=== PATIENT | female | born 1985 | race American Indian/Alaskan Native ===

== ENCOUNTER 2018-11-06 13:19 | Emergency (ER) | payer BC ==
[2018-11-06] MEDS ORDERED: BENADRYL IV ONE (13:48)
--- NOTE | 2018-11-06 13:59 | Emergency Department Report ---
HPI - General Chief Complaint: Syncope Time Seen by Provider: 11/06/18 13:41 - HPI HPI: Room 8 The patient is a 32-year-old female presenting with a chief complaint of syncope and mouth twisting. The patient is currently at [facility] for sony ricci. Patient was given Geodon yesterday and today at approximately 09:00. The patient states approximately one hour prior to arrival she began to feel as though she is having difficulty controlling the muscles in her mouth and then had a syncopal episode. Patient denied any palpitations, shortness of breath, chest pain or headache. Patient denies pain of any type. Staff from [facility] states that the patient was on the phone when they saw her. Head down while standing. That went to the patient and she collapsed into her arms. They sent the patient chair and checked her vitals. The patient was found to be hypoxic to 75% on room air with a glucose of 106. Tactile stimuli was applied and the patient began to wake and her pulse ox improved to greater than 95%. Staff states the patient was unresponsive for approximately 4 minutes. Location: [See above] Duration: [See above] Quality: Difficulty controlling mouth Severity: Moderate Modifying factors: [see above] Context: [see above] Mode of transportation: [not driving] ED Past Medical Hx - Past Medical History Previous Medical History?: Yes Hx Psychiatric Treatment: (anxiety, depression) - Surgical History Past Surgical History?: No Additional Surgical History: D&C - Family History Family history: no significant - Social History Smoking Status: Never Smoker Substance Use Type: None ED Review of Systems ROS: Stated complaint: SYNCOPY Other details as noted in HPI Constitutional: no symptoms reported Eyes: denies: eye pain ENT: other (difficulty controlling muscles of the mouth) Respiratory: no symptoms reported Cardiovascular: denies: chest pain, palpitations Endocrine: no symptoms reported Gastrointestinal: denies: abdominal pain Genitourinary: denies: dysuria Musculoskeletal: denies: back pain Neurological: denies: headache Physical Exam - Physical Exam Vital Signs: Vital Signs 11/06/18 13:35 Temperature 98.6 F Pulse Rate 80 Respiratory 16 Rate Blood Pressure 137/89 [Left] O2 Sat by Pulse 100 Oximetry Physical Exam: GENERAL: The patient is well-developed well-nourished female sitting on stretcher not appearing to be in acute distress. Patient has pursed lips but she is able to smile symmetrically when asked. [] HEENT: Normocephalic. Atraumatic. Extraocular motions are intact. Patient has moist mucous membranes. NECK: Supple. Trachea midline CHEST/LUNGS: Clear to auscultation. There is no respiratory distress noted. HEART/CARDIOVASCULAR: Regular. There is no tachycardia. There is no gallop rub or murmur. ABDOMEN: Abdomen is soft, nontender. Patient has normal bowel sounds. There is no abdominal distention. SKIN: There is no rash. There is no edema. There is no diaphoresis. NEURO: The patient is awake, alert, and oriented. The patient is cooperative. The patient has no focal neurologic deficits. The patient has normal speech. Cranial nerves II through XII grossly intact, no drift. Symmetric smile when prompted MUSCULOSKELETAL: There is no evidence of acute injury. ED Course Vital Signs 11/06/18 13:35 Temperature 98.6 F Pulse Rate 80 Respiratory 16 Rate Blood Pressure 137/89 [Left] O2 Sat by Pulse 100 Oximetry - Reevaluation(s) Reevaluation #1: 11/06/18 15:03 Patient improved and states she feels "great." Patient asymptomatic ED Medical Decision Making - Lab Data Result diagrams: 11/06/18 13:52 11/06/18 15:52 Laboratory Tests 11/06/18 11/06/18 11/06/18 13:52 13:53 13:53 WBC 8.1 RBC 4.50 Hgb 13.8 Hct 42.1 MCV 94 MCH 31 MCHC 33 RDW 13.6 Plt Count 230 Lymph % (Auto) 21.0 Mobile % (Auto) 7.5 H Eos % (Auto) 0.2 Baso % (Auto) 1.0 Lymph # 1.7 Mobile # 0.6 Eos # 0.0 Baso # 0.1 Seg Neutrophils % 70.3 H Seg Neutrophils # 5.7 D-Dimer 230.21 Sodium TNR Potassium TNR Chloride TNR Carbon Dioxide TNR Anion Gap TNR BUN TNR Creatinine TNR Estimated GFR TNR BUN/Creatinine Ratio TNR Glucose TNR Calcium TNR Total Creatine Kinase TNR CK-MB (CK-2) TNR CK-MB (CK-2) Rel Index TNR Troponin T TNR Urine Color Urine Turbidity Urine pH Ur Specific Perley Urine Protein Urine Glucose (UA) Urine Ketones Urine Blood Urine Nitrite Urine Bilirubin Urine Urobilinogen Ur Leukocyte Esterase Urine WBC (Auto) Urine RBC (Auto) U Epithel Cells (Auto) Urine Mucus Urine HCG, Qual Urine Opiates Screen Urine Methadone Screen Ur Barbiturates Screen Ur Phencyclidine Scrn Ur Amphetamines Screen U Benzodiazepines Scrn Urine Cocaine Screen U Marijuana (THC) Screen Drugs of Abuse Note 11/06/18 11/06/18 11/06/18 15:00 15:00 15:52 WBC RBC Hgb Hct MCV MCH MCHC RDW Plt Count Lymph % (Auto) Mobile % (Auto) Eos % (Auto) Baso % (Auto) Lymph # Mobile # Eos # Baso # Seg Neutrophils % Seg Neutrophils # D-Dimer Sodium 141 Potassium 4.0 Chloride 104.1 Carbon Dioxide 23 Anion Gap 18 BUN 8 Creatinine 0.7 Estimated GFR > 60 BUN/Creatinine Ratio 11 Glucose 83 Calcium 9.1 Total Creatine Kinase CK-MB (CK-2) CK-MB (CK-2) Rel Index Troponin T Urine Color Straw Urine Turbidity Clear Urine pH 7.0 Ur Specific Perley 1.003 Urine Protein <15 mg/dl Urine Glucose (UA) Neg Urine Ketones 20 Urine Blood Neg Urine Nitrite Neg Urine Bilirubin Neg Urine Urobilinogen < 2.0 Ur Leukocyte Esterase Neg Urine WBC (Auto) < 1.0 Urine RBC (Auto) < 1.0 U Epithel Cells (Auto) < 1.0 Urine Mucus Few Urine HCG, Qual Negative Urine Opiates Screen Presumptive negative Urine Methadone Screen Presumptive negative Ur Barbiturates Screen Presumptive negative Ur Phencyclidine Scrn Presumptive negative Ur Amphetamines Screen Presumptive negative U Benzodiazepines Scrn Presumptive negative Urine Cocaine Screen Presumptive negative U Marijuana (THC) Screen Presumptive negative Drugs of Abuse Note Disclamer - EKG Data -: EKG Interpreted by Fl EKG shows normal: sinus rhythm Rate: normal - EKG Data Interpretation: nonspecific ST-T wave pippa (early repolarization) - Radiology Data Radiology results: report reviewed (CT head), image reviewed (CT head) [facility] [address] [place] [address] Cat Scan Report Signed Patient: ZOE REINOSO MR#: [id number] : 1985 Acct:[id number] Age/Sex: 32 / F ADM Date: 11/06/18 Loc: ED Attending Dr: Ordering Physician: DONAVAN COVINGTON MD Date of Service: 11/06/18 Procedure(s): CT head/brain wo con Accession Number(s): [id number] cc: DONAVAN COVINGTON MD FINAL REPORT EXAM: CT HEAD/BRAIN WO CON HISTORY: syncope COMPARISON: None available. TECHNIQUE: Axial images obtained skull base through vertex. FINDINGS: No acute intracranial hemorrhage, midline shift or pathologic extra axial fluid collection. Ventricles and cisterns are normal in size and configuration for the patient's age. Wu-white differentiation preserved. Calvarium grossly intact. Visualized ocular globes are grossly unremarkable. Visualized para-nasal sinuses and mastoid air cells are clear. IMPRESSION: No grossly acute intracranial abnormality. Transcribed By: LMA Dictated By: KIRTI WANG MD Electronically Authenticated By: KIRTI WANG MD Signed Date/Time: 11/06/181658 DD/ 57 TD/TT: 11/06/181657 - Differential Diagnosis dystonic reaction, syncope, PE, dysrhythmia Critical care attestation.: If time is entered above; I have spent that time in minutes in the direct care of this critically ill patient, excluding procedure time. ED Disposition Clinical Impression: Syncope, Dystonic drug reaction Disposition: -09 OP ADMIT IP TO THIS HOSP Is pt being admited?: Yes Does the pt Need Aspirin: Yes Condition: Fair Instructions: Syncope (ED) Referrals: NADEGE LONG [Primary Care Provider] - 3-5 Days Time of Disposition: 17:01 (hospitalist paged (Dr Bentley))
[2018-11-06 14:36] LABS: Basophils # (Auto) 0.1 K/mm3 (0.0-0.1); Eosinophils % (Auto) 0.2 % (0.0-4.3); Hematocrit 42.1 % (30.3-42.9); Hemoglobin 13.8 gm/dl (10.1-14.3); Lymphocytes # (Auto) 1.7 K/mm3 (1.2-5.4); Mean Corpuscular HGB Conc 33 % (30-34); Mean Corpuscular Volume 94 fl (79-97); Monocytes # (Auto) 0.6 K/mm3 (0.0-0.8); Monocytes % (Auto) 7.5 % (0.0-7.3); Platelet Count 230 K/mm3 (140-440); Red Cell Distribution Width 13.6 % (13.2-15.2)
[2018-11-06 15:28] LABS: Blood Urea Nitrogen TNR mg/dL (7-17)
[2018-11-06 15:29] LABS: BUN/Creatinine Ratio TNR; Calcium TNR mg/dL (8.4-10.2); Creatine Kinase MB TNR ng/mL (0.0-4.0)
[2018-11-06 15:30] LABS: Hemolysis Index TNR
[2018-11-06 15:36] LABS: Bilirubin,Urine NEG (Negative); Blood,Urine NEG (Negative); Color,Urine Straw (Yellow); Mucus,Urine FEW /HPF; Protein,Urine <15 mg/dL mg/dL (Negative); RBC,Urine < 1.0 /HPF (0.0-6.0); Urobilinogen,Urine < 2.0 mg/dL (<2.0); WBC,Urine < 1.0 /HPF (0.0-6.0)
[2018-11-06 15:38] LABS: HCG Qualitative,Urine Negative (Negative)
[2018-11-06 15:46] LABS: Amphetamine Screen,Urine PRESUMPTIVE NEGATIVE; Benzodiazepines Screen,Urine PRESUMPTIVE NEGATIVE; Cannabinoid Screen,Urine PRESUMPTIVE NEGATIVE; Cocaine Screen,Urine PRESUMPTIVE NEGATIVE; Methadone Screen,Urine PRESUMPTIVE NEGATIVE; Opiate Screen,Urine PRESUMPTIVE NEGATIVE
[2018-11-06 16:13] LABS: BUN/Creatinine Ratio 11; Blood Urea Nitrogen 8 mg/dL (7-17); Calcium 9.1 mg/dL (8.4-10.2); Hemolysis Index 4
--- NOTE | 2018-11-06 16:59 | Cat Scan Report ---
FINAL REPORT EXAM: CT HEAD/BRAIN WO CON HISTORY: syncope COMPARISON: None available. TECHNIQUE: Axial images obtained skull base through vertex. FINDINGS: No acute intracranial hemorrhage, midline shift or pathologic extra axial fluid collection. Ventricle s and cisterns are normal in size and configuration for the patient's age. Wu-white differentiation preserved. Calvarium grossly intact. Visualized ocular globes are grossly unremarkable. Visualized p lima-nasal sinuses and mastoid air cells are clear. IMPRESSION: No grossly acute intracranial abnormality.
--- NOTE | 2018-11-06 18:24 | Event Note ---
Date: 11/06/18 Patient apparently passed out Reaction to Geoclaudette Admitted to [place] for Depression Stressors at Job which have been resolved Not suicidal or Homicidal Dis Dx Depression Lexapro 10 mg po qd
[2018-11-06 19:02] VITALS: BP 110/63
== END 2018-11-06 19:30 | disposition admitted as inpatient to this hospital (09) ==
LOC: EDBD → ED 13:19
DX: R55 Syncope and collapse (principal); F41.9 Anxiety disorder, unspecified; F32.9 Major depressive disorder, single episode, unspecified
CPT/HCPCS: 36415; 70450; 80048; 80307; 81001; 81025; 85025; 85379; 93005; 93010; 96374; 99284; J1200